=== PATIENT | female | born 1985 | race Caucasian/White ===

== ENCOUNTER 2017-09-02 22:46 | Emergency (ER) | payer OTHER ==
[2017-09-02] MEDS ORDERED: Ketorolac 60 MG/2 ML SDV IM ONE (23:53)
--- NOTE | 2017-09-02 23:53 | EDM.PDOC ---
ED HPI GENERAL MEDICAL PROBLEM - General Chief Complaint: Genitourinary Problem Stated Complaint: UTI Time Seen by Provider: 09/02/17 23:49 Source of Information: Reports: Patient, RN Notes Reviewed History Limitations: Reports: No Limitations - History of Present Illness INITIAL COMMENTS - FREE TEXT/NARRATIVE: 32-year-old female presents emergency department today complaint of dysuria frequency and now development of low back pain spinal on for the last couple days she's not sure she's had fevers does have a history of urinary tract infections Back Pain Score (Numeric/FACES): 6 - Related Data Allergies Allergy/AdvReac Type Severity Reaction Status Date / Time amoxicillin Allergy Hives Verified 09/02/17 23:08 lactose Allergy Indigestion Verified 09/02/17 23:08 Home Meds: Home Meds Acetaminophen 2 tab PO PRN 09/02/17 [History] Ibuprofen [Advil] 3 tab PO PRN 09/02/17 [History] Multivitamin [Gummi Bear Multivitamin] 1 tab PO DAILY 09/02/17 [History] Past Medical History - Past Surgical History HEENT Surgical History: Reports: Oral Surgery Other HEENT Surgeries/Procedures: impacted teeth Female Surgical History: Reports: Section, Other (See Below) Other Female Surgeries/Procedures: ablation Social & Family History - Tobacco Use Smoking Status *Q: Never Smoker - Caffeine Use Caffeine Use: Reports: Soda Other Caffeine Use: occasionally - Recreational Drug Use Recreational Drug Use: No ED ROS GENERAL - Review of Systems Review Of Systems: See Below Constitutional: Denies: Fever, Chills HEENT: Reports: No Symptoms Respiratory: Reports: No Symptoms Cardiovascular: Reports: No Symptoms GI/Abdominal: Reports: Abdominal Pain. Denies: Nausea, Vomiting : Reports: Dysuria, Flank Pain, Frequency, Pain, Urgency. Denies: Discharge Musculoskeletal: Reports: Back Pain Skin: Reports: No Symptoms Neurological: Reports: No Symptoms ED EXAM, RENAL/ - Physical Exam Exam: See Below Exam Limited By: No Limitations General Appearance: Alert, Mild Distress Respiratory/Chest: No Respiratory Distress, Lungs Clear, Normal Breath Sounds, No Accessory Muscle Use Cardiovascular: Regular Rate, Rhythm, No Murmur GI/Abdominal: Soft, Tender (CVA area left side greater than right) Course - Vital Signs Last Recorded V/S: Last Vital Signs Temp 95.5 F 09/02/17 23:06 Pulse 85 09/02/17 23:06 Resp 16 09/02/17 23:06 BP 174/101 H 09/02/17 23:06 Pulse Ox 96 09/02/17 23:06 - Orders/Labs/Meds Orders: Active Orders 24 hr Category Date Time Status CULTURE URINE [RM] Urgent Lab 09/02/17 23:45 Received Labs: Laboratory Tests 09/02/17 Range/Units 23:27 Urine Color Yellow Urine Appearance Slightly cloudy Urine pH 6.0 (4.5-8.0) Ur Specific [place] 1.020 (1.008-1.030) Urine Protein Negative (NEGATIVE) mg/dL Urine Glucose (UA) Normal (NEGATIVE) mg/dL Urine Ketones Negative (NEGATIVE) mg/dL Urine Occult Blood Negative (NEGATIVE) Urine Nitrite Negative (NEGATIVE) Urine Bilirubin Negative (NEGATIVE) Urine Urobilinogen Normal (NORMAL) mg/dL Ur Leukocyte Esterase Moderate (NEGATIVE) Urine RBC 0-5 (0-5) Urine WBC 10-20 H (0-5) Ur Epithelial Cells Few Amorphous Sediment Not seen Urine Bacteria Many Urine Mucus Few Departure - Departure Time of Disposition: 23:52 Disposition: Home, Self-Care 01 Condition: Good Clinical Impression: Pyelonephritis - Discharge Information Referrals: PCP,None [Primary Care Provider] - Additional Instructions: Take full course of antibiotics, use hydrocodone as needed for pain control, Please followup with your primary care provider in 3-5 days if not better, please call return to the emergency department with worsening of symptoms. - My Orders Last 24 Hours: My Active Orders 09/02/17 23:45 CULTURE URINE [RM] Urgent - Assessment/Plan Last 24 Hours: My Active Orders 09/02/17 23:45 CULTURE URINE [RM] Urgent Plan: Assessment Acuity = acute Site and laterality = urinary tract infection concern for development of pyelonephritis Etiology = probable bacterial cause Manifestations = back pain Location of injury = Home Lab values = urinalysis reveals 10-20 WBCs consistent pyuria with many bacteria cultures pending Plan Will start Levaquin empirically 500 mg by mouth daily 10 days until culture results return, she is to follow-up with primary care in 3-5 days for reevaluation, hydrocodone 5/325 one tab by mouth 3 times a day when necessary total #10 This note was dictated using [employer] voice recognition software please call with any questions on syntax or [employer].
[2017-09-03] MEDS ORDERED: Ondansetron 4 MG Tab.DIS PO ONE (00:04)
== END 2017-09-03 00:20 | disposition home or self-care (01) ==
LOC: JP.ED 22:46
DX: N12 Tubulo-interstitial nephritis, not specified as acute or chronic (principal); Z88.1 Allergy status to other antibiotic agents; Z91.011 Allergy to milk products
CPT/HCPCS: 81001; 87086; 87088; 87186; 96372; 99284; A9270; J1885